=== PATIENT | female | born 1965 | race Caucasian/White ===

== ENCOUNTER 2017-09-29 15:12 | Emergency (ER) | payer MEDICAID, OTHER ==
[~2017-09-29] VITALS: Ht 162.6 cm; Wt 61.0 kg
[2017-09-29 15:17] VITALS: BP 151/96
[2017-09-29] MEDS ORDERED: METH4TAB3 PO (15:54)
== END 2017-09-29 16:20 | disposition home or self-care (01) ==
LOC: ER 15:13
DX: G89.29 Other chronic pain (principal); M54.9 Dorsalgia, unspecified; F17.200 Nicotine dependence, unspecified, uncomplicated; Z88.0 Allergy status to penicillin; Z88.5 Allergy status to narcotic agent; Z79.899 Other long term (current) drug therapy
CPT/HCPCS: 99283

== ENCOUNTER 2017-10-11 15:22 | Emergency (ER) | payer MEDICAID ==
[~2017-10-11] VITALS: Ht 162.6 cm; Wt 56.0 kg
[~2017-10-11 15:22] MED LIST: METH4TAB3 PO
[2017-10-11 15:43] VITALS: BP 160/86
[2017-10-11] MEDS ORDERED: ketorolac trometh inj. 60 MG/2 ML VIAL IM ONE (17:10)
[2017-10-11] MEDS ORDERED: CYCL-1 PO (17:10)
== END 2017-10-11 17:51 | disposition home or self-care (01) ==
LOC: ER 15:23
DX: G89.29 Other chronic pain (principal); M54.9 Dorsalgia, unspecified; Z88.0 Allergy status to penicillin; Z88.5 Allergy status to narcotic agent; Z79.899 Other long term (current) drug therapy
CPT/HCPCS: 96372; 99283; J1885